=== PATIENT | female | born 1970 | race Asian ===

== ENCOUNTER 2023-03-12 16:38 | Emergency (ER) | payer OTHER ==
[~2023-03-12] VITALS: Ht 154.9 cm; Wt 746.2 kg
[2023-03-12 17:05] VITALS: TEMP 98.1
[2023-03-12 17:36] LABS: PLATELET COUNT 184 K/uL (152-353)
[2023-03-12 18:54] VITALS: BP 121/71
== END 2023-03-12 18:55 | disposition home or self-care (01) ==
LOC: ED 16:38
PROVIDERS: Emergency Medicine
DX: T78.3XXA Angioneurotic edema, initial encounter (principal); F17.210 Nicotine dependence, cigarettes, uncomplicated; F14.90 Cocaine use, unspecified, uncomplicated; F10.90 Alcohol use, unspecified, uncomplicated
CPT/HCPCS: 36415; 80053; 80307; 81002; 85027; 96372; 99283; J1100; J1200